=== PATIENT | male | born 1990 | race African-American/Black ===

== ENCOUNTER 2023-09-18 09:45 | Outpatient (AMB) | payer OTHER, SELFPAY ==
[2023-09-18 09:46] VITALS: BP 126/88; PULSE 94; O2SAT 98; BMI 42.5
--- NOTE | 2023-09-18 09:46 | MHC.OFFVIS ---
Vital Signs 09/18/23 09:46 Height 6 ft 4 in Weight 349 lb BMI 42.5 BP 126/88 Blood Pressure Location Lt radial Position Sitting Pulse 94 Pulse Source Doppler Pulse Oximetry (%) 98 Oxygen Delivery Method Room Air Intake Visit Reasons: christine Allergies No Known Allergies Allergy (Verified 09/18/23 09:53) HPI HPI christine: Details: 33-year-old gentleman with underlying obesity and hypertension, also new diagnosis of moderate obstructive sleep apnea referred for management of his sleep concerns. Patient is a rear load truck driver. He is interested in trying CPAP therapy. [facility], [facility] Social History (Updated 09/18/23 @ 09:53 by Margaret Turpin [facility]) Patient Tobacco Use Status: Never used Tobacco Review of Systems Const Reports daytime sleepiness, Denies excessive sweating, Reports fatigue, Denies fever(s), Denies lethargy, Denies malaise, Denies night sweats, Reports snoring and Denies weight loss Eyes Denies blurry vision and Denies itchy eyes ENT Denies nasal congestion, Denies post nasal drip, Denies sinus pain, Denies sinus pressure and Denies other ( Thrush) Card Denies chest pain, Denies pedal edema, Denies dyspnea, Denies orthopnea and Denies paroxysmal nocturnal dyspnea Resp Denies cough, Denies hemoptysis, Denies excessive phlegm production, Denies dyspnea, Reports snoring and Denies wheezing GI Denies abdominal pain and Denies heartburn Musc Denies myalgias, Denies arthralgias and Denies joint swelling Skin/Breast Denies rash Neuro Denies memory loss and Denies seizure-like activity Psych Denies abnormal sleep pattern, Denies anxiety and Denies memory loss Endo Denies excessive sweating, Reports fatigue and Denies heat intolerance Shon/Lymph Denies easy bruising Aller/Immun Denies itchy eyes, Denies seasonal rhinorrhea and Denies wheezing Physical Exam Vital Signs: Last Vital Signs Pulse 94 09/18/23 09:46 BP 126/88 09/18/23 09:46 Pulse Ox 98 09/18/23 09:46 Oxygen Delivery Method Room Air 09/18/23 09:46 BMI result Body Mass Index 42.5 Const General: no acute distress and alert Nutritional Appearance: obese Orientation/consciousness: Other orientation findings ( oriented) HEENT Head: Yes atraumatic Eyes General: appearance normal, both eyes and all related structures Sclerae: sclerae normal EOM: EOMs intact bilaterally Neck Neck: Yes supple Lymphatic: no lymphadenopathy noted Resp Effort & Inspection: normal respiratory effort and no use of accessory muscles Auscultation: clear to auscultation bilaterally Cardio Rate: regular rate Rhythm: regular rhythm Heart sounds: no gallops, no murmurs and no rubs Skin General skin exam: other ( warm) Extrem General: No clubbing, No cyanosis and No edema Assessment & Plan Assessment & Plan (1) CHRISTINE (obstructive sleep apnea): Code(s): G47.33 - Obstructive sleep apnea (adult) (pediatric) Category: Medical (2) Hypertension: Code(s): I10 - Essential (primary) hypertension Category: Medical (3) Obesity: Code(s): E66.9 - Obesity, unspecified Category: Medical Plan Results of sleep study reviewed, underlying at least moderate obstructive sleep apnea with obesity and hypertension. Will start on APAP of 6-16 cm of water. Coding Level of Care Code New Pt Level 3 (61614) Diagnoses CHRISTINE (obstructive sleep apnea) G47.33 Hypertension I10 Obesity E66.9
== END 2023-09-18 10:05 | disposition home or self-care (01) ==
PROVIDERS: PCP Internal Medicine; Visit Provider Internal Medicine Pulmonary Disease
DX: G47.33 Obstructive sleep apnea (adult) (pediatric) (principal); I10 Essential (primary) hypertension; E66.9 Obesity, unspecified
CPT/HCPCS: 99203

== ENCOUNTER → 2023-09-18 09:45 | Outpatient (BNVA) | payer OTHER, SELFPAY | PROVIDERS: PCP Internal Medicine; Visit Provider Internal Medicine Pulmonary Disease | DX: G47.33 Obstructive sleep apnea (adult) (pediatric) (principal); I10 Essential (primary) hypertension; E66.9 Obesity, unspecified; Z68.41 Body mass index [BMI] 40.0-44.9, adult | CPT/HCPCS: 99202 ==

== ENCOUNTER → 2024-01-07 09:21 | Outpatient (BNVA) | payer OTHER, SELFPAY | PROVIDERS: PCP Internal Medicine; Visit Provider Internal Medicine Pulmonary Disease ==

== ENCOUNTER → 2024-08-30 08:52 | Outpatient (REF) | payer MEDICAID, SELFPAY ==
--- OUTSIDE RECORDS SUMMARY | 2024-08-30 09:21 | XMS_ITS | Clinical Summary ---
Author Organization [facility] [address] [place] [address] [place] [id number] Phone Care Team Providers Care [employer] Sales Representative Name Role Phone Unavailable Primary Care Provider Unavailabl e Allergies No known active allergies Medications hydroCHLOROthiaz mak (HYDRODIURIL) 25 mg tablet Take 1 Tablet by mouth daily. 10/22/2023 Active losartan (COZAAR) 100 mg tablet Take 1 Tablet by mouth daily. 07/07/2023 Active pantoprazole (PROTONIX) 40 mg EC tablet Take 1 Tablet by mouth as needed (Heartburn) . 07/07/2023 Active Active Problems Problem Noted Date Diagnosed Date Sleep apnea 03/05/2023 Primary hypertension 09/23/2022 High triglycerides 12/21/2021 Elevated blood pressure reading 06/22/2021 Overview (01/12/2024): Last Assessment & Plan: He did have an elevated blood pressure a few times. This is been monitored. It is good today. We did discuss modifications that he can do with his diet to keep this under control. I have encouraged him to work on diet exercise salt avoidance and cut back on the caffeine. I have also asked him to check an echocardiogram to make sure there is no changes in his left ventricular size or function. I did explain that this is a very common cause of heart failure and we want to be aggressive in preventing this. Chest pain 05/15/2021 Overview (01/12/2024): Last Assessment & Plan: He has not had any chest pain since his last visit to the hospital. He does take his Protonix as needed. I did recommend that he should follow up with GI for evaluation. We did discuss cutting back on caffeine as this is making his reflux and gastritis potentially worse. This does not sound cardiac in nature and does not need any cardiovascular testing for this.I have encouraged him to work on diet and exercise to keep his risks under better control. Hypertensive urgency 05/15/2021 Morbid obesity ([facility] V24, [facility] V28) 2021 Medical History Medical History Date Comments Indigestion DX:Indigestion Morbid obesity ([facility] V24, [facility] V28) DX:Morbid obesity ([facility]) GERD (gastroesophageal reflux disease) DX:GERD (gastroesophageal reflux disease) Class 3 severe obesity due t o excess calories without serious comorbidity in adult DX:Class 3 severe obesity du e to excess calories without serious comorbidity in adult ([facility]) Family History Medical History Relation Name Comments Diabetes Father Mellitus Hypertension Father Hypertension Mother Relation Name Status Comments Father Mother Social History Tobacco Use Types Packs/Day Years Used Date Smoking Tobacco: Never Smokeless Tobacco: Never Alcohol Use Standard Drinks/Week Comments Yes 0 (1 standard drink = 0.6 oz pur e alcohol) Sex and Gender Information Value Date Recorded Sex Assigned at Not on file Legal Sex Male 8:25 PM EST Gender Identity Not on file Sexual Orientation Not on file Obstetrics History Last Filed Vital Signs Vital Sign Reading Time Taken Comments Blood Pressure 131/81 05/27/2024 5:55 PM EST Pulse 96 05/27/2024 5:55 PM EST Temperature 37.3 ??C (99.1 ??F) 05/27/2024 5:55 PM ES T Respiratory Rate 16 05/27/2024 5:55 PM EST Oxygen Saturation 97% 05/27/2024 5:55 PM EST Inhaled Oxygen Concentration - - Weight 160 kg (352 lb 3.2 oz) 10/22/2023 10:05 A M EDT Height 190.5 cm (6' 3 ) 10/22/2023 10:05 AM EDT Body Mass Index 44.02 10/22/2023 10:05 AM EDT Plan of Treatment Health Maintenance Due Date Last Done Comments Hepatitis B Vaccines (1 of 3 - 19+ 3-dose series) 2010 Depression Screening 03/02/2022 Social Influencers of Health Screening 03/02/2022 COVID-19 Vaccine (3 - season) 2023 12/25/2020, 11/29/2020 Influenza Vaccine (Season Ended) 2024 06/12/2018 Hypertension/CHF/CAD Annual BMP Blood Test 05/27/2025 05/27/2024, 07/08/2023 DTaP,Tdap,and Td Vaccines (3 - Td or Tdap) 06/12/2028 06/12/2018, 09/28/2014 Cholesterol Screening (Lipid Panel) 07/07/2028 07/08/2023, 09/12/2020, 05/29/2020, Additional history exists HIV Screening Completed 11/13/2023, 10/29, 05/29/2020 Hepatitis C Screening Completed 11/13/2023 , 05/29/2020, 05/29/2020, Additional history exists HIB Vaccines Aged Out No longer eligi ble based on patient's age to complete this topic HPV Vaccines Aged Out No longer eligi ble based on patient's age to complete this topic Hepatitis A Vaccines Aged Out No long er eligible based on patient's age to complete this topic IPV Vaccines Aged Out No longer eligi ble based on patient's age to complete this topic MMR Vaccines Aged Out No longer eligi ble based on patient's age to complete this topic Meningococcal ACWY Vaccine Aged Out N o longer eligible based on patient's age to complete this topic Meningococcal B Vaccine Aged Out No l onger eligible based on patient's age to complete this topic Pneumococcal Vaccine: Pediatrics (0 to 5 Years) and At-Risk Patients (6 to 64 Years) Aged Out No longer eligible based on patient's age to complete this topic RSV Immunization Patients Under 20 months Aged Out No longer eligible based on patient's age to complete this topic Varicella Vaccines Aged Out No longer eligible based on patient's age to complete this topic Procedures Procedure Name Priority Date/Time Associated Diagnosis Comments COMPREHENSIVE METABOLIC PANEL STAT 05/27/2024 2:25 PM EST HEPATITIS C SCREENING Routine 11/13/2023 HIV SCREENING Routine 11/13/2023 LIPID PANEL Routine 07/08/2023 from Last 3 Months or Most Recently Relevant to Health Maintenance Results * Comprehensive metabolic panel (05/27/2024 2:25 PM EST) Sodium 139 133 - 145 mmol/L LAB CHEMISTRY METHOD 05/27/2024 3:11 PM [facility] Potassium 4.4 3.5 - 5.5 mmol/L LAB CHEMISTRY METHOD 05/27/2024 3:11 PM [facility] Chloride 106 96 - 110 mmol/L LAB CHEMISTRY METHOD 05/27/2024 3:11 PM [facility] CO2 27 21 - 32 mmol/L LAB CHEMISTRY METHOD 05/27/2024 3:11 PM [facility] Anion Gap 6 3 - 11 LAB CHEMISTRY METHOD 05/27/2024 3:11 PM [facility] Glucose 95 70 - 100 mg/dL LAB CHEMISTRY METHOD 05/27/2024 3:11 PM [facility] BUN 14 5 - 25 mg/dL LAB CHEMISTRY METHOD 05/27/2024 3:11 PM [facility] Creatinine 0.90 0.70 - 1.30 mg/dL LAB CHEMISTRY METHOD 05/27/2024 3:11 PM [facility] eGFR 116 >=60 mL/min/1. 73m2 LAB CHEMISTRY METHOD 05/27/2024 3:11 PM [facility] Comment:Calculation based on the??Chronic Kidney Disease Epidemiology Collaboration (CKD-EPI) equation refit??without adjustment for race. BUN/Creatinine Ratio 15.6 LAB CHEMISTRY METHOD 05/27/2024 3:11 PM [facility] Calcium 8.8 8.5 - 10.5 mg/dL LAB CHEMISTRY METHOD 05/27/2024 3:11 PM [facility] AST (SGOT) 20 10 - 42 unit/L LAB CHEMISTRY METHOD 05/27/2024 3:11 PM [facility] ALT (SGPT) 37 10 - 60 unit/L LAB CHEMISTRY METHOD 05/27/2024 3:11 PM EST [facility] Alkaline Phosphatase 65 42 - 121 unit/L LAB CHEMISTRY METHOD 05/27/2024 3:11 PM [facility] Total Protein 7.6 6.0 - 8.0 g/dL LAB CHEMISTRY METHOD 05/27/2024 3:11 PM EST [facility] Albumin 4.0 3.2 - 5.0 g/dL LAB CHEMISTRY METHOD 05/27/2024 3:11 PM [facility] Total Bilirubin 0.3 0.0 - 1.4 mg/dL LAB CHEMISTRY METHOD 05/27/2024 3:11 PM [facility] Blood Venous blood specimen / Unknown Venipuncture / Unknown 05/27/2024 2:25 PM EST 05/27/2024 2:30 PM EST Tayo Jack MD LAB BLOOD ORDERABLES Maricruz l Result [facility] [address] [place] [address], * HIV Screening (11/13/2023) Pathologist [facility] HIV Screening Abstracted Historical Provider HEALTH MAINTENANCE Final Result * Hepatitis C Screening (11/13/2023) [facility] Hepatitis C Screening Abstracted Historical Provider HEALTH MAINTENANCE Final Result * (ABNORMAL) Lipid panel (07/08/2023) [facility] LDL/HDL Ratio 5(A) 0 - 4 Triglycerides 161(A) 0 - 150 mg/dL Cholesterol 179 0 - 200 mg/dL HDL 40 >=40 mg/dL LDL Cholesterol 107(A) 0 - 100 mg/dL Blood Venous blood specimen / Unknown Historical Provider LAB BLOOD ORDERABLES Maricruz l Result from Last 3 Months or Most Recently Relevant to Health Maintenance Insurance [place] [facility]
== END ==
LOC: HO.SL 08:52
PROVIDERS: Visit Provider Internal Medicine Pulmonary Disease
DX: G47.33 Obstructive sleep apnea (adult) (pediatric) (principal)
CPT/HCPCS: 95806

== ENCOUNTER → 2024-08-30 09:12 | Outpatient (BNV) | payer MEDICAID, SELFPAY | PROVIDERS: Visit Provider Internal Medicine | DX: G47.33 Obstructive sleep apnea (adult) (pediatric) (principal) | CPT/HCPCS: 95806 ==

== ENCOUNTER 2025-01-26 14:32 | Outpatient (AMB) | payer OTHER, SELFPAY ==
--- NOTE | 2025-01-26 14:33 | A.OFFVIS_ITS ---
Vital Signs 01/26/25 14:34 Height 6 ft 4 in Weight 345 lb BMI 42.0 BP 140/88 H Blood Pressure Location Rt brachial Position Sitting Pulse 77 Pulse Source Pulse Oximeter Pulse Oximetry (%) 98 Oxygen Delivery Method Room Air Intake Visit Reasons: Obstructive sleep apnea Allergies No Known Allergies Allergy (Verified 01/26/25 14:42) HPI HPI Obstructive sleep apnea: Details: 35-year-old gentleman with underlying obesity and hypertension, also new diagnosis of moderate obstructive sleep apnea referred for management of his sleep concerns. He has received his CPAP machine has been using it with significantly improved control of his underlying sleep apnea symptoms. [facility] Social History (Updated 09/18/23 @ 09:53 by AUSTIN Rothman) Patient Tobacco Use Status: Never used Tobacco Review of Systems Const Denies daytime sleepiness, Denies excessive sweating, Denies fatigue, Denies fever(s), Denies lethargy, Denies malaise, Denies night sweats, Denies snoring and Denies weight loss Eyes Denies blurry vision and Denies itchy eyes ENT Denies nasal congestion, Denies post nasal drip, Denies sinus pain, Denies sinus pressure and Denies other ( Thrush) Card Denies chest pain, Denies pedal edema, Denies dyspnea, Denies orthopnea and Denies paroxysmal nocturnal dyspnea Resp Denies cough, Denies hemoptysis, Denies excessive phlegm production, Denies dyspnea, Denies snoring and Denies wheezing GI Denies abdominal pain and Denies heartburn Musc Denies myalgias, Denies arthralgias and Denies joint swelling Skin/Breast Denies rash Neuro Denies memory loss and Denies seizure-like activity Psych Denies abnormal sleep pattern, Denies anxiety and Denies memory loss Endo Denies excessive sweating, Denies fatigue and Denies heat intolerance Shon/Lymph Denies easy bruising Aller/Immun Denies itchy eyes, Denies seasonal rhinorrhea and Denies wheezing Physical Exam Vital Signs: Last Vital Signs Pulse 77 01/26/25 14:34 BP 140/88 H 01/26/25 14:34 Pulse Ox 98 01/26/25 14:34 Oxygen Delivery Method Room Air 01/26/25 14:34 BMI result Body Mass Index 42.0 Const General: no acute distress and alert Nutritional Appearance: obese Orientation/consciousness: Other orientation findings ( oriented) HEENT Head: Yes atraumatic Eyes General: appearance normal, both eyes and all related structures Sclerae: sclerae normal EOM: EOMs intact bilaterally Neck Neck: Yes supple Lymphatic: no lymphadenopathy noted Resp Effort & Inspection: normal respiratory effort and no use of accessory muscles Auscultation: clear to auscultation bilaterally Cardio Rate: regular rate Rhythm: regular rhythm Heart sounds: no gallops, no murmurs and no rubs Skin General skin exam: other ( warm) Extrem General: No clubbing, No cyanosis and No edema Assessment & Plan Assessment & Plan (1) KAIT (obstructive sleep apnea): Code(s): G47.33 - Obstructive sleep apnea (adult) (pediatric) Category: Medical Plan: Significantly improved control on CPAP therapy. Continue current CPAP therapy. Coding Level of Care Code Est Pt Level 3 (55193) Diagnoses KAIT (obstructive sleep apnea) G47.33
[2025-01-26 14:34] VITALS: BP 140/88; PULSE 77; O2SAT 98; BMI 42.0
--- OUTSIDE RECORDS SUMMARY | 2025-01-26 18:53 | XMS_ITS | Clinical Summary ---
Author Organization [facility] Address [address] [place] [address] Care Team Providers Care Sandblast Carver Name Role Phone Blas Mcgregor MD Primary Care Provider [phone] Source Comments PLEASE NOTE, if this patient is a minor, it may be UNLAWFUL to discuss sensitive information that is contained in these records (such as FAMILY PLANNING, MENTAL HEALTH or SUBSTANCE ABUSE) with the minor patient's parent or other person without the patient's specific authorization.[facility] Allergies No known active allergies Medications ANTACID REGULAR STRENGTH 200-200-20 mg/5 mL suspension 12/05/2020 Activ e pantoprazole (PROTONIX) 40 mg EC tabletIndication s:Gastroesophage al reflux disease without esophagitis Take 1 Tablet by mouth once daily 30 Tablet 1 03/20/2021 Active Active Problems Problem Noted Date Diagnosed Date Gastroesophageal reflux disease without esophagi tis 12/08/2020 High triglycerides 04/18/2020 Class 3 severe obesity due t o excess calories without serious comorbidity in adult 01/06/2020 Immunizations Immunization Administration Dates Next Due Flu, Preservative Free 06/12/2018 TDAP 06/12/2018 Social History Tobacco Use Types Packs/Day Years Used Date Smoking Tobacco: Never Smokeless Tobacco: Never Tobacco Cessation:Counseling Given: Yes Alcohol Use Standard Drinks/Week Comments Yes 3 (1 standard drink = 0.6 oz pur e alcohol) occasion Social Connections Answer Date Recorded Connectedness 0 07/20/2021 Financial Resource Strain Answer Date R ecorded Financial Resource Strain 0 2021 Stress Answer Date Recorded Stress 0 07/20/2021 Physical Activity Answer Date Recorded Physical Activity 0 12/08/2019 Food Insecurity Answer Date Recorded Food 0 07/20/2021 Transportation Needs Answer Date Record ed Transportation 0 07/20/2021 Housing Stability Answer Date Recorded Housing 0 07/20/2021 Safety and Environment Answer Date Siva rded Safety 0 07/20/2021 Utilities Answer Date Recorded Utilities 0 07/20/2021 Employment Answer Date Recorded Employment 0 12/08/2019 Sex and Gender Information Value Date Recorded Sex Assigned at Male 12/08/2019 7:37 AM PDT Legal Sex Male 11:44 AM PDT Gender Identity Male 12/08/2019 7:37 AM PDT Sexual Orientation Don't know 12/08/2019 7: 37 AM PDT Last Filed Vital Signs Vital Sign Reading Time Taken Comments Blood Pressure 130/80 07/20/2021 1:24 PM EDT Pulse 80 07/20/2021 1:15 PM EDT Temperature 37.2 C (99 F) 01/03/2021 10:48 AM EDT Respiratory Rate 20 07/20/2021 1:15 PM EDT Oxygen Saturation 97% 08/09/2020 9:52 AM EDT Inhaled Oxygen Concentration - - Weight 153.3 kg (338 lb) 07/20/2021 1:15 PM EDT Height 190.5 cm (6' 3 ) 07/20/2021 1:15 PM EDT Body Mass Index 42.25 07/20/2021 1:15 PM EDT Plan of Treatment Health Maintenance Due Date Last Done Comments Anxiety Screening 1991 Tobacco Screening 1991 Imm-Hepatitis B (1 of 3 - 19 + 3-dose series) 2010 Imm-HPV (1 - 3-dose SCDM series) 2018 Annual Wellness (Adult): Indicated (All Coverage) 05/29/2021 05/29/2020 Diabetes Screening 03/20/2022 03/20/2021, 0 05/29/2020, 05/29/2020, Additional history exists Hypertension Screening (#1) 07/20/2022 Alcohol and Drug Screen 03/31/2024 07/21/19 22, 09/06/2020, 12/08/2019 Depression Annual Screen 03/31/2024 [id number] ( season) 2024 021, 11/29/2020 Imm-Influenza (#1) 2024 06/12/2018 Imm-DTaP/Tdap/Td (3 - Td or Tdap) 06/12/2028 019, 09/27/2014 Syphilis Screening Discontinued 12/08/2019 HIV Screening Completed 05/29/2020, 05/29/2020 Hepatitis C Screening Completed 05/29/2020 Procedures Procedure Name Priority Date/Time Associated Diagnosis Comments GLUCOSE, BLOOD BY GLUCOSE MONITORING DEVICE (CLIA WAIVED)POCT Routine 03/20/2021 11:27 AM EST Light-headed feeling ANTIBODY HIV-1&HIV-2 SINGLE RESULT Routine 05/29/2020 10:50 AM EST Health care maintenance HEPATITIS C ANTIBODY Routine 05/29/2020 10:50 AM EST Routine general medical examination at a health care facility FTA-ABS, SERUM Routine 12/08/2019 11:07 AM EDT Pain in testicle, unspecified laterality from Last 3 Months or Most Recently Relevant to Health Maintenance Results * (ABNORMAL) GLUCOSE, BLOOD BY GLUCOSE MONITORING DEVICE (CLIA WAIVED)POCT (03/20/2021 11:27 AM EST) GLUCOSE 125(A) 70 - 100 mg/dL [facility] POCT Capillary Blood Blood / Unknown 11:27 AM EST [facility] LAB - BLOOD DRAW Final Result [facility] PO[facility] * HEPATITIS C ANTIBODY (05/29/2020 10:50 AM EST) HEPATITIS C VIRUS SCREEN NEGATIVE NEGATIVE [facility] Blood Blood / Unknown 05/29/2020 1 0:50 AM EST 05/29/2020 1:31 PM EST Narrative J [facility] - 05/29/2020 7:05 PM EST [employer], a member of [address] [address] Traffic Technician - Eneida Rangel MD PT ID [id number] ORD# [id number] Blas Mcgregor MD LAB - BLOOD DRAW Final Result Performing Organization Address City/[facility]/ZIP Co de Phone Number [address] [address], * HIV future (05/29/2020 10:50 AM EST) Pathologist [facility] HIV 1 AND 2 ANTIBODY SCREEN NEGATIVE NEGATIVE [facility] Comment: This assay is a 4th generation assay allowing for earlier detection of HIV infection by detecting the presence of the HIV-1 p24 antigen as well as the traditional antibodies to HIV type 1 (including group O) and type 2. Use of a 4th generation assay is the current CDC recommendation for HIV screening. Blood Blood / Unknown 05/29/2020 1 0:50 AM EST 05/29/2020 1:31 PM EST [employer] [facility] [employer] [facility] - 05/29/2020 7:05 PM EST [employer], [place] [address] Traffic Technician - Eneida Rangel MD PT ID [id number] ORD# [id number] Blas Mcgregor MD LAB - BLOOD DRAW Final Result Performing Organization Address City/[facility]/ZIP Co de Phone Number [address] [address], [place] [phone] * FTA-ABS, SERUM (12/08/2019 11:07 AM EDT) Pathologist [facility] TREPONEMAL AB NEGATIVE NEGATIVE [facility] 12/08/2019 11:0 7 AM EDT 12/08/2019 3:36 PM EDT [facility] [employer] [facility] - 12/08/2019 6:14 PM EDT [employer], [place] [address] Traffic Technician - Eneida Rangel MD PT ID [id number] ORD# [id number] Mary Mcmillan PA-C LAB - BLOOD DRAW Final Result [facility] [address] [place] [address], from Last 3 Months or Most Recently Relevant to Health Maintenance Insurance [email or web address] Care Teams Sandblast Carver Relationship Specialty Start Date End Date Blas Mcgregor MD [address] [place] [address] PCP - General Internal Medicine 12/01/19
--- OUTSIDE RECORDS SUMMARY | 2025-01-26 18:53 | XMS_ITS | Clinical Summary ---
Author Organization [facility] [address] [place] [address] [place] [phone] Phone Care Team Providers Care Entry Clerk Name Role Phone Unavailable Primary Care Provider [...] better control. Hypertensive urgency 05/15/2021 Morbid obesity ([facility] V24, [facility] V28) 2021 Medical History Medical History Date Comments Indigestion DX:Indigestion Morbid obesity ([facility] V24, [facility] V28) DX:Morbid obesity ([facility]) GERD (gastroesophageal reflux disease) DX:GERD (gastroesophageal reflux disease) Class 3 severe obesity due t o excess calories without serious comorbidity in adult ([facility] V28) DX:Class 3 severe obesity du e to excess calories without serious comorbidity in adult ([facility]) Family History Medical History Relation Name Comments [...] 96 05/27/2024 5:55 PM EST Temperature 37.3 C (99.1 F) 05/27/2024 5:55 PM EST Respiratory Rate 16 05/27/2024 5:55 PM EST [...] of 3 - 19+ 3-dose series) 2010 HPV Vaccines (1 - 3-dose SCDM series) 2018 Social Influencers of Health Screening 03/02/2022 Depression Screening 03/31/2024 COVID-19 Vaccine (3 - season) 2024 12/25/2020, 11/29/2020 Influenza Vaccine (#1) 2024 06/12/2018 Hypertension/CHF/CAD Annual BMP Blood Test 05/27/2025 05/27/2024, 07/08/2023 DTaP,Tdap,and Td Vaccines (3 - Td or Tdap) 06/12/2028 06/12/2018, 09/28/2014 Cholesterol Screening (Lipid Panel) 07/07/2028 07/08/2023, 09/12/2020, 05/29/2020, Additional history exists RSV Immunization Adult Patients (1 - 1-dose 75+ series) 2066 HIV Screening Completed 11/13/2023, 10/29, 05/29/2020 Hepatitis [...] 5 Years) and At-Risk Patients (6 to 49 Years) Aged Out No longer eligible based [...] mmol/L LAB CHEMISTRY METHOD 05/27/2024 3:[address] [facility] Potassium 4.4 3.5 - 5.5 mmol/L LAB CHEMISTRY METHOD 05/27/2024 3:[address] [facility] Chloride 106 96 - 110 mmol/L LAB CHEMISTRY METHOD 05/27/2024 3:[address] [facility] CO2 27 21 - 32 mmol/L LAB CHEMISTRY METHOD 05/27/2024 3:[address] [facility] Anion Gap 6 3 - 11 LAB CHEMISTRY METHOD 05/27/2024 3:[address] [facility] Glucose 95 70 - 100 mg/dL LAB CHEMISTRY METHOD 05/27/2024 3:[address] [facility] BUN 14 5 - 25 mg/dL LAB CHEMISTRY METHOD 05/27/2024 3:[address] [facility] Creatinine 0.90 0.70 - 1.30 mg/dL LAB CHEMISTRY METHOD 05/27/2024 3:[address] [facility] eGFR 116 >=60 mL/min/1. 73m2 LAB CHEMISTRY METHOD 05/27/2024 3:[address] [facility] Comment:Calculation based on the Chronic Kidney Disease Epidemiology Collaboration (CKD-EPI) equation refit without adjustment for race. BUN/Creatinine Ratio 15.6 LAB CHEMISTRY METHOD 05/27/2024 3:[address] [facility] Calcium 8.8 8.5 - 10.5 mg/dL LAB CHEMISTRY METHOD 05/27/2024 3:[address] [facility] AST (SGOT) 20 10 - 42 unit/L LAB CHEMISTRY METHOD 05/27/2024 3:[address] [facility] ALT (SGPT) 37 10 - 60 unit/L LAB CHEMISTRY METHOD 05/27/2024 3:[address] [facility] Alkaline Phosphatase 65 42 - 121 unit/L LAB CHEMISTRY METHOD 05/27/2024 3:[address] [facility] Total Protein 7.6 6.0 - 8.0 g/dL LAB CHEMISTRY METHOD 05/27/2024 3:[address] [facility] Albumin 4.0 3.2 - 5.0 g/dL LAB CHEMISTRY METHOD 05/27/2024 3:[address] [facility] Total Bilirubin 0.3 0.0 - 1.4 mg/dL LAB CHEMISTRY METHOD 05/27/2024 3:[address] [facility] Blood Venous blood specimen / Unknown Venipuncture / Unknown 05/27/2024 2:25 PM EST 05/27/2024 2:30 PM EST Tayo Jack MD LAB BLOOD ORDERABLES Maricruz l Result [facility] [address] [place] [address], * HIV Screening (11/13/2023) Pathologist [facility] HIV Screening Abstracted Historical Provider HEALTH MAINTENANCE Final Result * Hepatitis C Screening (11/13/2023) [facility] Hepatitis C Screening Abstracted Historical Provider HEALTH MAINTENANCE Final Result * (ABNORMAL) Lipid panel (07/08/2023) [facility] LDL/HDL Ratio 5(A) 0 - 4 Triglycerides 161(A) 0 - 150 mg/dL Cholesterol 179 0 - 200 mg/dL HDL 40 >=40 mg/dL LDL Cholesterol 107(A) 0 - 100 mg/dL Blood Venous blood specimen / Unknown us Historical Provider LAB BLOOD ORDERABLES Maricruz l Result from Last 3 Months or Most Recently Relevant to Health Maintenance Insurance [place]ICA[place] - [place] [facility]
== END 2025-01-26 14:59 | disposition home or self-care (01) ==
LOC: HO.HPS 14:32
PROVIDERS: Visit Provider Internal Medicine Pulmonary Disease
DX: G47.33 Obstructive sleep apnea (adult) (pediatric) (principal)
CPT/HCPCS: 99213

== ENCOUNTER → 2025-01-26 14:32 | Outpatient (BNVA) | payer OTHER, SELFPAY | PROVIDERS: Visit Provider Internal Medicine Pulmonary Disease | DX: G47.33 Obstructive sleep apnea (adult) (pediatric) (principal) | CPT/HCPCS: 99212 ==